=== PATIENT | female | born 1975 | race Caucasian/White ===

== ENCOUNTER 2023-04-27 11:54 | Observation (INO) | payer MEDICARE, MEDICAID ==
[~2023-04-27] VITALS: Ht 157.5 cm; Wt 92.0 kg
[~2023-04-27 11:54] MED LIST: ALBU2.5V10; ALBU8.5H; AMOX875T PO; AMPH1CAP4 PO; ATOG10TA PO; AZEL1SPR3 NARES; B-12100010 PO; BUPR150T12 PO; BUTA-198 PO; BUTACAP78 PO; CALC500C16 PO; EQL50TAB2 PO; FAMO40TA3 PO; FLON1SPR NARES; FLUO20CA22 PO; FURO40TA2 PO; HEPARIN SOD (PORCINE) 5000UNITS/ML 1ML VIAL/SYRINGE SQ ONE; HYDR-643 PO; LAMO150T3 PO; LIDOCAINE 2% 100MG/5ML SDV (FOR ANES.) As Ordered ONE; LORA2TAB14 PO; MAGN400C PO; METH-1164 PO; MIDAZOLAM INJ 2MG/2ML VIAL As Ordered ONE; NEUR600T PO; ONDANSETRON 4MG 2ML VIAL As Ordered ONE; PANT40TA29 PO; PRAZ5CAP PO; PROM25TA12 PO; PROP120C PO; PYRI25TA2 PO; QUET50TA4 PO; RIME75TA PO; ROCURONIUM BROMIDE 50MG/5ML VIAL As Ordered ONE; SEMA1PEN2 SQ; TIZA10TA PO; VYVA50CH PO; [UNRECOGNIZED DRUG - CODE] INJ; ceFAZolin SOD 2 GM in IV 1 EA IV ONE; fentaNYL 250 MCG/5 ML INJECTION As Ordered ONE; propofoL 200 MG/20 ML VIAL As Ordered ONE
[2023-04-27] MEDS ORDERED: LIDOCAINE 1% MDV 20ML VIAL As Ordered ONE (12:43)
[2023-04-27] MEDS ORDERED: EPINEPHrine INJ 1 MG/ML 1ML AMP As Ordered ONE (12:43)
[2023-04-27] MEDS ORDERED: GENTAMICIN SULF 80MG/2ML VIAL As Ordered ONE (12:43)
[2023-04-27] MEDS ORDERED: LR 1,000 ML IV SCH ×2 (13:00→16:30)
[2023-04-27] MEDS ORDERED: LACRILUBE (AKWA TEARS) OPHTH OINT 3.5GM As Ordered ONE (13:40)
[2023-04-27] MEDS ORDERED: ACETAMINOPHEN 1000MG 100ML IV BAG As Ordered ONE (13:40)
[2023-04-27] MEDS ORDERED: ROCURONIUM BROMIDE 50MG/5ML VIAL As Ordered ONE ×2 (13:52→14:26)
[2023-04-27] MEDS ORDERED: SUGAMMADEX SODIUM 500 MG/5 ML VIAL (BRIDION) As Ordered ONE (14:16)
[2023-04-27] MEDS ORDERED: HYDROmorphone HCL 2MG/ML 1ML VIAL As Ordered ONE (14:16)
[2023-04-27] MEDS ORDERED: ONDANSETRON 4MG 2ML VIAL IV PRN ×2 (16:30→16:55)
[2023-04-27] MEDS: oxyCODONE 5MG TAB PO PRN ×2 (16:51→17:24)
[2023-04-27] MEDS: LR 1,000 ML IV SCH (16:55)
[2023-04-27] MEDS ORDERED: ACETAMINOPHEN TAB 650MG DOSE (2X325MG) PO PRN (16:55)
[2023-04-27] MEDS: fentaNYL 100 MCG/2 ML INJECTION IV PRN ×3 (17:24→17:39)
[2023-04-27 19:00] VITALS: BP 130/83; TEMP 97; O2SAT 97
[2023-04-27 19:48] VITALS: BP 137/70; TEMP 97.3; O2SAT 96
[2023-04-27 20:40] VITALS: BP 139/71; TEMP 97.2; O2SAT 96
[2023-04-27] MEDS: FAMOTIDINE 20 MG TAB PO SCH (20:45)
[2023-04-27] MEDS: AZELASTINE 137MCG NASAL SPY 30 ML (ASTELIN) SCH (20:46)
[2023-04-27] MEDS: PERCOCET 5MG/325MG TAB PO PRN (20:46)
[2023-04-27] MEDS ORDERED: PRAZOSIN 1 MG CAP PO SCH (21:00)
[2023-04-27] MEDS: ceFAZolin SOD 1 GM in D5W MINI-BAG PLUS 50 ML IV SCH (21:53)
[2023-04-27 21:57] VITALS: BP 133/72; TEMP 97.5; O2SAT 95
[2023-04-28] MEDS: PERCOCET 5MG/325MG TAB PO PRN ×4 (00:46→14:02)
[2023-04-28 01:14] VITALS: BP 127/62; TEMP 97.4; O2SAT 97
[2023-04-28 04:15] VITALS: BP 119/71; TEMP 97.1; O2SAT 97
[2023-04-28] MEDS: ceFAZolin SOD 1 GM in D5W MINI-BAG PLUS 50 ML IV SCH (04:53)
[2023-04-28] MEDS: LR 1,000 ML IV SCH (06:12)
[2023-04-28 08:08] VITALS: BP 112/59
[2023-04-28] MEDS: FAMOTIDINE 20 MG TAB PO SCH (08:09)
[2023-04-28] MEDS: AZELASTINE 137MCG NASAL SPY 30 ML (ASTELIN) SCH (08:09)
[2023-04-28] MEDS ORDERED: FLUoxetine 20MG CAP PO SCH (09:00)
[2023-04-28] MEDS ORDERED: buPROPion **XL** TABLET 150MG (WELLBUTRIN XL) PO SCH (09:00)
[2023-04-28] MEDS ORDERED: FUROSEMIDE 40 MG TAB PO SCH (09:00)
[2023-04-28] MEDS ORDERED: PROPRANOLOL 60MG LA CAP PO SCH (09:00)
[2023-04-28] MEDS ORDERED: PANTOPRAZOLE 40MG TAB (PROTONIX) PO SCH (09:00)
[2023-04-28 10:00] VITALS: BP 130/71; TEMP 96.7; O2SAT 96
[2023-04-28 14:00] VITALS: BP 108/68; TEMP 96.9; O2SAT 97
[2023-04-28] MEDS ORDERED: PERCOCET PO (14:56)
== END 2023-04-28 16:15 | disposition home or self-care (01) ==
LOC: M SDC 11:54 → M RR INP 16:54 → M MS5PR 18:35
PROVIDERS: ADMIT Plastic Surgery Surgery of the Hand; ATTEND Plastic Surgery Surgery of the Hand
DX: N62 Hypertrophy of breast (principal); E03.9 Hypothyroidism, unspecified; K58.8 Other irritable bowel syndrome; K21.9 Gastro-esophageal reflux disease without esophagitis; F31.9 Bipolar disorder, unspecified; F41.9 Anxiety disorder, unspecified; F32.A Depression, unspecified; G43.909 Migraine, unspecified, not intractable, without status migrainosus; F43.10 Post-traumatic stress disorder, unspecified; J45.909 Unspecified asthma, uncomplicated; Z79.51 Long term (current) use of inhaled steroids; G47.33 Obstructive sleep apnea (adult) (pediatric); Z79.899 Other long term (current) drug therapy; F12.10 Cannabis abuse, uncomplicated; Z88.8 Allergy status to other drugs, medicaments and biological substances; Z88.2 Allergy status to sulfonamides; Z88.1 Allergy status to other antibiotic agents; Z91.040 Latex allergy status
CPT/HCPCS: 19318; 88305; 96365; 96366; 96375; C9290; G0378; J0131; J0665; J0690; J1100; J1170; J1580; J2250; J2405; J3010

== ENCOUNTER → 2023-06-30 | Outpatient (CLI) | payer MEDICARE, MEDICAID ==
[~2023-06-30] MED LIST changes: -HEPARIN SOD (PORCINE) 5000UNITS/ML 1ML VIAL/SYRINGE SQ ONE; -LIDOCAINE 2% 100MG/5ML SDV (FOR ANES.) As Ordered ONE; -MIDAZOLAM INJ 2MG/2ML VIAL As Ordered ONE; -ONDANSETRON 4MG 2ML VIAL As Ordered ONE; +PERCOCET PO; -ROCURONIUM BROMIDE 50MG/5ML VIAL As Ordered ONE; -ceFAZolin SOD 2 GM in IV 1 EA IV ONE; -fentaNYL 250 MCG/5 ML INJECTION As Ordered ONE; -propofoL 200 MG/20 ML VIAL As Ordered ONE
== END ==
LOC: M SOG 08:03
PROVIDERS: ATTEND Orthopaedic Surgery
DX: M25.461 Effusion, right knee (principal)